=== PATIENT | female | born 1990 | race Caucasian/White ===

== ENCOUNTER 2017-06-18 07:40 | Emergency (ER) | payer SELFPAY ==
[2017-06-18] MEDS: ONDANSETRON ODT 4 MG TAB.RAPDIS. PO (08:33)
[2017-06-18] MEDS: HYDROcodone/APAP 5/325MG 1 TAB TABLET PO (08:33)
== END 2017-06-18 09:38 | disposition home or self-care (01) ==
LOC: ER 07:40
DX: S39.92XA Unspecified injury of lower back, initial encounter (principal); G89.29 Other chronic pain; M54.2 Cervicalgia; V43.53XA Car driver injured in collision with pick-up truck in traffic accident, initial encounter; Y93.I9 Activity, other involving external motion; Y92.410 Unspecified street and highway as the place of occurrence of the external cause; Y99.8 Other external cause status
CPT/HCPCS: 72040; 72100; 99284; Q0162